=== PATIENT | female | born 1995 | race Two or more races ===

== ENCOUNTER 2018-06-22 12:06 | Inpatient (IN) | payer OTHER ==
[2018-06-22 12:53] LABS: APPEARANCE,URINE TURBID; BILIRUBIN,URINE NEGATIVE (NEGATIVE); GLUCOSE, URINE NEGATIVE (NEGATIVE); KETONES,URINE NEGATIVE (NEGATIVE); LEUKOCYTE ESTERASE,URINE LARGE (NEGATIVE); NITRITE,URINE NEGATIVE (NEGATIVE); PROTEIN,URINE 100 mg/dL (NEGATIVE); URINE SPECIFIC GRAVITY 1.019
[2018-06-22 12:59] LABS: COLOR,URINE DARK YELLOW
[2018-06-22] MEDS ORDERED: RINGERS SOLUTION,LACTATED 1,000 ML IV PRN (13:08)
[2018-06-22 13:11] LABS: URINE AMPHETAMINES SCREEN NEGATIVE; URINE BARBITURATES SCREEN NEGATIVE; URINE BENZODIAZEPINES SCREEN NEGATIVE; URINE COCAINE SCREEN NEGATIVE; URINE MARIJUANA (THC) SCREEN NEGATIVE; URINE METHADONE SCREEN NEGATIVE; URINE PHENCYCLIDINE SCREEN NEGATIVE
--- NOTE | 2018-06-22 13:56 | Admission Physical ---
Datetime Report Generated by CPN: 06/22/2018 13:56 CURRENT ADMISSION Chief Complaint: Suspected Ruptured Membranes Indication for Induction: Not Applicable Admit Impression : Term, Intrauterine ; Ruptured Membranes Admit Plan: Admit to Unit; Initiate Labor Protocol ALLERGIES Medication Allergies: No Medication Allergies: No Known Allergies (06/22/2018) Latex: No Latex Allergies OBSTETRICAL HISTORY EDC: 06/30/2018 00:00 : 1 Para: 0 Cesareans: 0 Gestational Diabetes: No Rh Sensitization: No Incompetent Cervix: No BUNNY: No Infertility: No ART Treatment: No Uterine Anomaly: No IUGR: No Hx Previous C/S: No Macrosomia: No Hx Loss/Stillborn: No PIH: No Hx : No Placenta Previa/Abruption: No Depression/PP Depression: No PTL/PROM: No Post Hemorrhage: No Current Procedures: Ultrasound Obstetrical History Comments: G1- Current SEE RECORDS Alcohol: No Marijuana : No Cocaine: No Other Illicit Drugs: No Cigarettes: Never Smoker. 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 Surgery: No Heart Disease: No Hosp/Surgery: No Autoimmune Disorder: No Anesthetic Complications: No Kidney Disease: No Abnormal Pap Smear: No Neuro/Epilepsy: No Psychiatric Disorders: No Other Medical Diseases: No Hepatitis/Liver Disease: No Significant Family History: No Varicosities/Phlebitis: No Trauma/Violence : No Thyroid Dysfunction: No INFECTIOUS HISTORY Gonorrhea: No Chlamydia: No Syphilis: No HIV/AIDS Exposure: No PHYSICAL EXAM General: Normal Neurologic: Normal Heart: Normal Lungs: Normal Back: Normal Abdomen: Normal Genitourinary Exam: Normal Extremities: Normal Pelvic Type: Adequate Vital Signs: Reviewed; Within Normal Limits VAGINAL EXAM Dilatation: 6 Effacement: 100 Station: 0 Contraction Comments: 3-9 MEMBRANES Membranes: Ruptured Amniotic Fluid Color: Clear FETUS A EGA: 38.6 Monitoring: External US FHR- Baseline: 125 Variability: Moderate 6-25bpm Accelerations: 15X15 Decelerations: Prolonged FHR Category: Category II FHR Comments: prolonged decel after cervical check which resolved after position changes and oxygen. Cat I tracing prior Presentation: Vertex Admit Comment: 23yo G1 @ 38w6d into L_D with LOF since 1000. Pt. denies any concerns, reports +FM and cramping since last night. Pt. is RI, GBS neg, O pos with only significant hx of obesity. Will augment with pitocin as needed with reactive strip. Pt. and asked questions and verbalized understanding PLANS FOR LABOR AND DELIVERY Labor and Delivery: None Pain Management: None Other Pain Management Plans: may decide to get epidural Feeding Preference: Breast Benefit of Breast Feed Discussed: Yes Circumcision: No INFORMED CONSENT Assignment: Nicol Santos MD Signature: with User ID: [email or web address] : with User ID: [email or web address]
[2018-06-22] MEDS ORDERED: OXYTOCIN/NORMAL SALINE 20 UNIT/1,000 ML RTUINJ IV PRN ×2 (14:10→19:42)
[2018-06-22 14:26] LABS: HEMATOCRIT 32.3 % (36.0-47.0); MEAN CORPUSCULAR HEMOGLOBIN 30.3 pg (27.0-33.4); MEAN CORPUSCULAR VOLUME 89 fl (80-97); PLATELET COUNT 282 10^3/uL (150-450); RED BLOOD COUNT 3.62 10^6/uL (3.72-5.28); RED CELL DISTRIBUTION WIDTH 13.7 % (11.5-14.0); WHITE BLOOD COUNT 10.1 10^3/uL (4.0-10.5)
[2018-06-22] MEDS ORDERED: OXYTOCIN 10 UNIT/ML VIAL ONE (14:28)
[2018-06-22] MEDS ORDERED: OXYTOCIN/NORMAL SALINE 20 UNIT/1,000 ML RTUINJ ONE (14:29)
[2018-06-22] MEDS ORDERED: MISOPROSTOL 0.2 MG TABLET ONE ×2 (14:29→23:42)
[2018-06-22] MEDS ORDERED: LIDOCAINE 1% INJ-PF (10 MG/ML) 30 ML SDV ONE (14:29)
[2018-06-22] MEDS ORDERED: PROMETHAZINE HCL INJ 25 MG/1 ML VIAL IV ONE (18:19)
[2018-06-22] MEDS ORDERED: NALBUPHINE HCL INJ 10 MG/1 ML AMPULE IV ONE (18:19)
[2018-06-22] MEDS ORDERED: NALBUPHINE HCL INJ 10 MG/1 ML AMPULE ONE (18:25)
[2018-06-22] MEDS ORDERED: PROMETHAZINE HCL INJ 25 MG/1 ML VIAL ONE (18:25)
--- NOTE | 2018-06-22 19:27 | Warning Signs in Babies ---
VOD Warning Signs Datetime Report Generated by CPN: 06/22/2018 19:27 VOD#608 -Warning Signs in Babies: Viewed with Parent(s)/Family (06/22/2018 13:22:ANYA Leyva )
[2018-06-22] MEDS ORDERED: PROMETHAZINE HCL 25 MG TABLET PO PRN (19:42)
[2018-06-22] MEDS ORDERED: BENZOCAINE/MENTHOL AEROSOL SPRAY 56 ML TOP PRN (19:42)
[2018-06-22] MEDS ORDERED: ACETAMINOPHEN 650 MG SUPP.RECT PR PRN (19:42)
[2018-06-22] MEDS ORDERED: PSEUDOEPHEDRINE HCL 30 MG TABLET PO PRN (19:42)
[2018-06-22] MEDS ORDERED: GLYCERIN/WITCH HAZEL LEAF 1 EACH MED..PAD TP PRN (19:42)
[2018-06-22] MEDS ORDERED: NA PHOS,M-B/NA PHOS,DI-BA (ADULT) 133 ML ENEMA PR PRN (19:42)
[2018-06-22] MEDS ORDERED: ZOLPIDEM TARTRATE 5 MG TABLET PO PRN (19:42)
[2018-06-22] MEDS ORDERED: PROMETHAZINE HCL 25 MG SUPP.RECT PR PRN (19:42)
[2018-06-22] MEDS ORDERED: DIPHENHYDRAMINE HCL 25 MG CAPSULE PO PRN (19:42)
[2018-06-22] MEDS ORDERED: DIPH/PERTUSS(ACELL)/TETANUS VAC/PF 0.5 ML SYR (>=10YO) IM PRN (19:42)
[2018-06-22] MEDS ORDERED: MEASLES,MUMPS&RUBELLA VACC/PF 0.5 ML VIAL SUBCUT PRN (19:42)
[2018-06-22] MEDS ORDERED: MAGNESIUM HYDROXIDE SUSP 30 ML UDCUP PO PRN (19:42)
[2018-06-22] MEDS ORDERED: ACETAMINOPHEN WITH CODEINE #3 TABLET PO PRN ×2 (19:42)
[2018-06-22] MEDS ORDERED: DIBUCAINE 1% OINTMENT 28 GM TP PRN (19:42)
[2018-06-22] MEDS ORDERED: PROMETHAZINE HCL INJ 25 MG/1 ML VIAL IV PRN (19:42)
[2018-06-22] MEDS ORDERED: FAMOTIDINE 20 MG TABLET ONE (20:34)
[2018-06-22] MEDS ORDERED: IBUPROFEN 800 MG TABLET ONE (20:34)
--- NOTE | 2018-06-22 20:42 | Delivery Summary ---
Del Sum A-C Datetime Report Generated by CPN: 06/22/2018 20:42 DELIVERY PERSONNEL DELIVERY PERSONNEL: [id number] Delivery Doctor:: Nicol Santos MD Labor and Delivery Nurse:: Pedro Granados RNcounty director welfare Nurse:: Lucy Olson RN Nursery Nurse:: Vy Guthrie RN Senior Manager Creative Services/MECHANICAL SOUND TECHNICIAN: Delmi Alatorre, ST MATERNAL INFORMATION Delivery Anesthesia: None Medications After Delivery: Pitocin Bolus-Please Comment Meds After Delivery Comment: Pitocin 20mu in 1000 LR bolus Estimated Blood Loss (ml): 300 Maternal Complications: None Provider Comments: kiwi applied x 2 PO LABOR SUMMARY EDC: 06/30/2018 00:00 No. Babies in Womb: 1 Attempted: No Labor Anesthesia: None LABOR INFORMATION Reason for Induction: Not Applicable Onset of Labor: 06/22/2018 13:33 Complete Dilatation: 06/22/2018 18:39 Oxytocin: Augmentation Group B Beta Strep: negative Antibiotics # of Doses: 0 Antibiotics Time of Last Dose: na Name of Antibiotic Given: na Steroids Given: None Reason Steroids Not Administered: Not Applicable MEMBRANES Membranes Rupture Method: Spontaneous Rupture of Membranes: 06/22/2018 10:00 Length of Rupture (hr): 9.08 Amniotic Fluid Color: Clear Amniotic Fluid Amount: Small Amniotic Fluid Odor: none STAGES OF LABOR Stage 1 hr: 5 Stage 1 min: 6 Stage 2 hr: 0 Stage 2 min: 26 Stage 3 hr: 0 Stage 3 min: 5 Total Time in Labor hr: 5 Total Time in Labor min: 37 VAGINAL DELIVERY Episiotomy: None Laceration #1: Perineal Laceration Extension #1: Third Degree, IIIa (Less than 50 percent ext anal sphincter thickness torn) Laceration Repair: Yes Laceration Repair Note: in normal fashion with 2-0 chromic Sponge Count Correct: N/A Sharps Count Correct: N/A CSECTION DELIVERY Primary Indication: N/A Secondary Indication: N/A CSection Incidence: N/A Labor: N/A Elective: N/A CSection Incision: N/A BABY A INFORMATION Delivery Date/Time: 06/22/2018 19:05 Method of Delivery: Vaginal Born in Route : No : N/A Forceps: N/A Vacuum Extraction: Successful Shoulder Dystocia : No ASSISTED DELIVERY BABY A Indication for Assisted Delivery: Prolonged deceleration Catheter Prior to Procedure: Yes Station Vacuum/Forcep Apply: +3 Vacuum Number of Pulls: 2 Vacuum Number of PopOffs: 1 Reduce Pressure btwn Ctx: Yes Vacuum Classroom Teacher: Kiwi PRESENTATION/POSITION BABY A Presentation: Cephalic Cephalic Presentation: Vertex Breech Presentation: N/A PLACENTA INFORMATION BABY A Placenta Delivery Time : 06/22/2018 19:10 Placenta Method of Delivery: Spontaneous Placenta Status: Delivered SCORES BABY A Heart Rate 1 min: >100 bpm Resp Effort 1 min: Good Cry Reflex Irritability 1 min: Cough or Sneeze or Pulls Away Muscle Tone 1 min: Active Motion Color 1 min: Blue/Pale Resuscitation Effort 1 min: Tactile Stimulation SCORE 1 MIN: 8 Heart Rate 5 min: >100 bpm Resp Effort 5 min: Good Cry Reflex Irritability 5 min: Cough or Sneeze or Pulls Away Muscle Tone 5 min: Active Motion Color 5 min: Body [place], Extremities Blue Resuscitation Effort 5 min: N/A SCORE 5 MIN: 9 INFORMATION BABY A Gestational Age at Delivery: 38.6 Gestational Status: Early Term- 37- 38.6 Weeks Outcome : Liveborn Condition : Stable Infant Sex: Male IDENTIFICATION BABY A Verification Date/Time: 06/22/2018 19:23 ID Band Number: [id number] Mother's Name Verified: Yes Infant RN Verifying : SVance, RN Additional Verifying Personnel: Kelly, FIELD COUNSEL WEIGHT/LENGTH BABY A Birthweight (gm): 3069 Weight (lb): 6 Weight (oz): 12 Length (in): 19.50 Infant Length (cm): 49.53 CORD INFORMATION BABY A No. Cord Vessels: 3 Nuchal Cord : Around Neck x1, Loose Cord Blood Taken: Yes-For Eval (Mom's Blood Type - or O+) Suction: Mouth; Nose ASSESSMENT BABY A Infant Complications: Multiple Variable Decels Physical Findings at Delivery: Within Normal Limits Respirations: Appears Normal Skin to Skin: Yes Skin to Skin Time (min): 60 Nail Feeder/ALS Called : No Transferred To: Remains with Mother BABY B INFORMATION : N/A SIGNATURES Signature: with User ID: [email or web address]
[2018-06-22] MEDS: FAMOTIDINE 20 MG TABLET PO SCH (21:11)
[2018-06-22] MEDS: IBUPROFEN 800 MG TABLET PO SCH (21:11)
[2018-06-22] MEDS ORDERED: MISOPROSTOL 0.2 MG TABLET PR ONE (23:45)
[2018-06-23] MEDS: IBUPROFEN 800 MG TABLET PO SCH ×3 (06:34→21:32)
[2018-06-23 06:52] LABS: HEMATOCRIT 28.2 % (36.0-47.0); HEMOGLOBIN 9.7 g/dL (12.0-15.5); MEAN CORPUSCULAR HEMOGLOBIN 30.6 pg (27.0-33.4); MEAN CORPUSCULAR HGB CONC 34.6 g/dL (32.0-36.0); MEAN CORPUSCULAR VOLUME 89 fl (80-97); PLATELET COUNT 247 10^3/uL (150-450); RED BLOOD COUNT 3.18 10^6/uL (3.72-5.28); RED CELL DISTRIBUTION WIDTH 13.6 % (11.5-14.0); WHITE BLOOD COUNT 11.9 10^3/uL (4.0-10.5)
--- NOTE | 2018-06-23 09:33 | PDOC PROGRESS REPORT ---
Subjective-OB Progress Note for:: 06/23/18 - PPD#1, doing well, breast feeding, O+, Rubella Immune,, s/p vacuum delivery w/ 3rd degree laceration. Physical Exam (OB) Vital Signs: Temp Pulse Resp BP Pulse Ox 98.1 F 88 16 113/56 L 98 06/23/18 08:08 06/23/18 08:08 06/23/18 08:08 06/23/18 08:08 06/23/18 08:08 Intake & Output 06/22/18 06/23/18 06/24/18 06:59 06:59 06:59 Weight 87.8 kg - General General Appearance: Appears well, Alert In distress: None - PIH/Pre-Eclampsia DTR's: 2 + Clonus: Negative Headache: Absent Epigastric Pain: No Visual Changes: No - Lochia Lochia Amount: Moderate 25-50 ml Lochia Color: Rubra/Red - Abdomen Description: Soft Hernia Present: No Fundal Description: Firm, Non-Midline Describe if Not Midline: 2 inches to left of umbilicus Fundal Height: 1/u - 2/u - Respiratory Respiratory Status: No respiratory distress - Abdominal Inspection: Normal Distension: No distension - Genitourinary Genitourinary Note: voiding - Extremities Upper extremity: Normal inspection Lower extremities: Normal inspection - Neurological Cognition: Normal Orientation: AAOx4 - Psychological Associated symptoms: Normal affect, Normal mood - Skin Skin Temperature: Warm Objective-Diagnostic Laboratory: 06/23/18 06:43 06/22/18 06/22/18 06/22/18 12:16 14:05 14:05 WBC 10.1 RBC 3.62 L Hgb 11.0 L Hct 32.3 L MCV 89 MCH 30.3 MCHC 34.0 RDW 13.7 Plt Count 282 Urine Color DARK YELLOW Urine Appearance TURBID Urine pH 6.0 Ur Specific [place] 1.019 Urine Protein 100 H Urine Glucose (UA) NEGATIVE Urine Ketones NEGATIVE Urine Blood SMALL H Urine Nitrite NEGATIVE Ur Leukocyte Esterase LARGE H Blood Type O POSITIVE Antibody Screen NEGATIVE 06/23/18 06:43 WBC 11.9 H RBC 3.18 L Hgb 9.7 L Hct 28.2 L MCV 89 MCH 30.6 MCHC 34.6 RDW 13.6 Plt Count 247 Urine Color Urine Appearance Urine pH Ur Specific [place] Urine Protein Urine Glucose (UA) Urine Ketones Urine Blood Urine Nitrite Ur Leukocyte Esterase Blood Type Antibody Screen Assessment and Plan(PN) - Assessment and Plan (1) Vacuum extraction, delivered, current hospitalization Is this a current diagnosis for this admission?: Yes (2) Anemia, Is this a current diagnosis for this admission?: Yes (3) Third degree perineal laceration during delivery Qualifiers: Third degree perineal laceration subtype: unspecified Qualified Code(s): O70.20 - Third degree perineal laceration during delivery, unspecified Is this a current diagnosis for this admission?: Yes - Time Spent with Patient Time with patient: Less than 15 minutes Medications reviewed and adjusted accordingly: Yes - Disposition Anticipated Discharge: Home Within: within 24 hours
[2018-06-23] MEDS: PRENATAL VITAMIN W DHA CAPSULE PO SCH (10:10)
[2018-06-23] MEDS: FERROUS SULFATE 325 MG TABLET PO SCH ×2 (10:11→17:40)
[2018-06-23] MEDS: FAMOTIDINE 20 MG TABLET PO SCH ×2 (10:11→21:32)
[2018-06-23] MEDS: DOCUSATE SODIUM 100 MG CAPSULE PO SCH ×2 (10:11→17:40)
[2018-06-23] MEDS: SENNOSIDES/DOCUSATE 8.6-50 MG 1 EACH TABLET PO SCH (10:11)
[2018-06-24] MEDS: IBUPROFEN 800 MG TABLET PO SCH ×2 (06:33→14:37)
--- NOTE | 2018-06-24 10:11 | PDOC DISCHARGE SUMMARY ---
Final Diagnosis Discharge Date: 06/24/18 - Final Diagnosis (1) Anemia, Is this a current diagnosis for this admission?: Yes (2) Third degree perineal laceration during delivery Is this a current diagnosis for this admission?: Yes (3) Vacuum extraction, delivered, current hospitalization Is this a current diagnosis for this admission?: Yes Discharge Data - Discharge Medication Prescriptions: Ibuprofen [Motrin 800 mg Tablet] 800 mg PO Q8HP PRN #60 tablet PRN Reason: Home Medications: Ibuprofen [Motrin 800 mg Tablet] 800 mg PO Q8HP PRN #60 tablet 06/24/18 Reason(s) for Admission: Onset of Labor, PROM Procedures: NST Intrapartum Procedure(s): Vacuum Extraction Complication(s): Laceration-Perineal Laceration-Degree: 3rd - Diagnosis Test Laboratory: Temp Pulse Resp BP Pulse Ox 97.8 F 92 17 108/68 100 06/24/18 08:17 06/24/18 08:17 06/24/18 08:17 06/24/18 08:17 06/24/18 08:17 06/22/18 06/22/18 06/23/18 12:16 14:05 06:43 RBC 3.62 L 3.18 L Hgb 11.0 L 9.7 L Hct 32.3 L 28.2 L Urine Opiates Screen NEGATIVE - Discharge information/Instructions Discharge Activity: Balance Activity w/Rest, Pelvic Rest Discharge Diet: Regular Disposition: HOME, SELF-CARE Follow up with: [facility] in: 3, Weeks
[2018-06-24] MEDS: PRENATAL VITAMIN W DHA CAPSULE PO SCH (10:28)
[2018-06-24] MEDS: SENNOSIDES/DOCUSATE 8.6-50 MG 1 EACH TABLET PO SCH (10:28)
[2018-06-24] MEDS: DOCUSATE SODIUM 100 MG CAPSULE PO SCH (10:28)
[2018-06-24] MEDS: FAMOTIDINE 20 MG TABLET PO SCH (10:28)
[2018-06-24] MEDS: FERROUS SULFATE 325 MG TABLET PO SCH (10:29)
[2018-06-24 10:55] VITALS: BP 134/69
== END 2018-06-24 18:00 | disposition home or self-care (01) | DRG 768 ==
LOC: LC 12:06 → LR 13:03 → 2S 21:30
PROVIDERS: ADMIT Obstetrics & Gynecology; ATTEND Obstetrics & Gynecology
PROC: 10D07Z6 Extraction of Products of Conception, Vacuum, Via Natural or Artificial Opening (ICD-10-PCS; principal; 2018-06-22)
PROC: 0DQR0ZZ Repair Anal Sphincter, Open Approach (ICD-10-PCS; 2018-06-22)
PROC: 4A1HXCZ Monitoring of Products of Conception, Cardiac Rate, External Approach (ICD-10-PCS; 2018-06-22)
DX: O76 Abnormality in fetal heart rate and rhythm complicating labor and delivery (principal); Z37.0 Single live birth; O70.21 Third degree perineal laceration during delivery, IIIa; O69.81X0 Labor and delivery complicated by cord around neck, without compression, not applicable or unspecified; O99.214 Obesity complicating childbirth; O42.90 Premature rupture of membranes, unspecified as to length of time between rupture and onset of labor, unspecified weeks of gestation; E66.9 Obesity, unspecified; O99.02 Anemia complicating childbirth; D64.9 Anemia, unspecified; Z3A.38 38 weeks gestation of pregnancy
CPT/HCPCS: 36415; 59025; 80307; 81005; 84112; 85027; 86592; 86850; 86900; 86901; J2300; J2550; J2590; J3490